=== PATIENT | female | born 1970 | race Asian ===

== ENCOUNTER 2016-06-13 08:06 | Emergency (ER) | payer OTHER ==
[~2016-06-13] VITALS: Ht 144.8 cm; Wt 40.0 kg
[2016-06-13 08:49] LABS: BASOPHIL % 0.3 % (0-2); PLATELET COUNT 389 x10^3mcL (130-400); RED CELL DISTRIBUTION WIDTH 13.3 % (11.5-14.5)
[2016-06-13 08:55] LABS: microscopic required? YES; urine erythrocyte 1+ (NEGATIVE)
[2016-06-13 09:08] LABS: CALCIUM 9.5 mg/dL (8.5-10.1); CARBON DIOXIDE 29.4 mmol/L (21-32); CHLORIDE SERUM 103 mmol/L (98-107); CREATININE SERUM 0.7 mg/dL (0.6-1.0); GFR1 > 60 mL/min; GLUCOSE SERUM 92 mg/dL (74-106); POTASSIUM SERUM 3.3 mmol/L (3.5-5.1); SODIUM SERUM 141 mmol/L (136-145)
[2016-06-13 09:12] LABS: ALBUMIN 3.9 g/dL (3.4-5.0); ALKALINE PHOSPHATASE 80 U/L (46-116); ALT/SGPT 24 U/L (14-59); AST/SGOT 21 U/L (15-37); BILIRUBIN TOTAL 0.4 mg/dL (0.20-1.00); LIPASE 77 IU/L (73-393)
[2016-06-13 09:13] LABS: TOTAL PROTEIN, SERUM 8.6 g/dL (6.4-8.2)
[2016-06-13 12:07] VITALS: BP 90/58
== END 2016-06-13 12:07 | disposition home or self-care (01) ==
LOC: ED 08:06
PROVIDERS: Emergency Medicine
DX: R07.89 Other chest pain (principal); M54.5 Low back pain; R39.11 Hesitancy of micturition; R10.9 Unspecified abdominal pain
CPT/HCPCS: J1885; J2270; J2405; J7030; Q9967

== ENCOUNTER 2016-06-15 08:19 | Inpatient (IN) | payer OTHER ==
[~2016-06-15] VITALS: Ht 142.2 cm; Wt 39.5 kg
[2016-06-15 09:14] LABS: microscopic required? NO
[2016-06-15 09:24] LABS: BASOPHIL % 0.4 % (0-2); PLATELET COUNT 332 x10^3mcL (130-400); RED CELL DISTRIBUTION WIDTH 13.7 % (11.5-14.5)
[2016-06-15 09:30] LABS: CARBON DIOXIDE 28.3 mmol/L (21-32); CHLORIDE SERUM 105 mmol/L (98-107); CREATININE SERUM 0.7 mg/dL (0.6-1.0); GFR1 > 60 mL/min; GLUCOSE SERUM 91 mg/dL (74-106); POTASSIUM SERUM 3.5 mmol/L (3.5-5.1); SODIUM SERUM 142 mmol/L (136-145)
[2016-06-15 09:37] LABS: ALBUMIN 3.4 g/dL (3.4-5.0); ALKALINE PHOSPHATASE 68 U/L (46-116); ALT/SGPT 18 U/L (14-59); AMYLASE 41 U/L (25-115); AST/SGOT 12 U/L (15-37); BILIRUBIN TOTAL 0.3 mg/dL (0.20-1.00); LIPASE 90 IU/L (73-393); TOTAL PROTEIN, SERUM 7.4 g/dL (6.4-8.2)
[2016-06-15 09:37] LABS: UA SPECIFIC GRAVITY 1.015 (1.005-1.035); urine erythrocyte NEGATIVE (NEGATIVE)
[2016-06-15 12:22] VITALS: BP 122/73
[2016-06-15 12:41] LABS: CHOLESTEROL/HDL RATIO 2.6
[2016-06-15 12:48] LABS: T3 TOTAL 0.85 ng/mL
[2016-06-15 12:50] LABS: FREE T4 1.1 ng/dL (0.76-1.46); FREE THYROXINE INDEX 2.4 ug/dL (1.4-4.5); T4(THYROXINE) 7.6 ug/dL (4.7-13.3)
[2016-06-15 13:13] LABS: AMPHETAMINE QUAL UR NONE DETECTED (NEG <=1000)
[2016-06-15 14:00] VITALS: BP 124/77
[2016-06-15 18:03] VITALS: BP 116/71
[2016-06-15 21:11] VITALS: BP 105/71
[2016-06-16 05:39] VITALS: BP 121/78
[2016-06-16 06:22] LABS: BASOPHIL % 0.4 % (0-2); PLATELET COUNT 338 x10^3mcL (130-400); RED CELL DISTRIBUTION WIDTH 13.6 % (11.5-14.5)
[2016-06-16 06:37] LABS: CALCIUM 8.7 mg/dL (8.5-10.1); CARBON DIOXIDE 27.2 mmol/L (21-32); CHLORIDE SERUM 106 mmol/L (98-107); CREATININE SERUM 0.8 mg/dL (0.6-1.0); GFR1 > 60 mL/min; GLUCOSE SERUM 88 mg/dL (74-106); MAGNESIUM 2.9 mg/dL (1.8-2.4); PHOSPHOROUS 3.9 mg/dL (2.5-4.9); POTASSIUM SERUM 3.3 mmol/L (3.5-5.1); SODIUM SERUM 143 mmol/L (136-145)
[2016-06-16 09:43] VITALS: BP 113/62
[2016-06-16 13:17] VITALS: BP 120/69
[2016-06-16 17:14] VITALS: BP 126/74
[2016-06-17 06:04] VITALS: BP 131/80
[2016-06-17 06:39] LABS: BASOPHIL % 0.3 % (0-2); PLATELET COUNT 311 x10^3mcL (130-400); RED CELL DISTRIBUTION WIDTH 13.9 % (11.5-14.5)
[2016-06-17 07:00] LABS: CALCIUM 8.9 mg/dL (8.5-10.1); CARBON DIOXIDE 27.6 mmol/L (21-32); CHLORIDE SERUM 108 mmol/L (98-107); CREATININE SERUM 0.6 mg/dL (0.6-1.0); GFR1 > 60 mL/min; GLUCOSE SERUM 83 mg/dL (74-106); POTASSIUM SERUM 3.7 mmol/L (3.5-5.1); SODIUM SERUM 143 mmol/L (136-145)
[2016-06-17 09:11] VITALS: BP 124/81
[2016-06-17 10:30] VITALS: BP 114/78
[2016-06-17 13:15] VITALS: BP 115/78
[2016-06-17 17:18] VITALS: BP 10/62
[2016-06-17 21:25] VITALS: BP 109/67
[2016-06-18 01:00] VITALS: Ht 142.2 cm; Wt 39.5 kg
[2016-06-18 05:42] VITALS: BP 132/74
[2016-06-18 06:51] LABS: CALCIUM 8.1 mg/dL (8.5-10.1); CARBON DIOXIDE 22.8 mmol/L (21-32); CHLORIDE SERUM 106 mmol/L (98-107); CREATININE SERUM 0.5 mg/dL (0.6-1.0); GFR1 > 60 mL/min; GLUCOSE SERUM 65 mg/dL (74-106); POTASSIUM SERUM 3.5 mmol/L (3.5-5.1); SODIUM SERUM 140 mmol/L (136-145)
[2016-06-18 07:27] LABS: BASOPHIL % 0.3 % (0-2); PLATELET COUNT 287 x10^3mcL (130-400)
[2016-06-18 09:49] VITALS: BP 113/68
[2016-06-18 14:17] VITALS: BP 112/75
[2016-06-18] MEDS ORDERED: ZITHROMAX TRI-500 MG PO (16:32)
[2016-06-18 17:02] VITALS: BP 112/75
[2016-06-18 17:27] VITALS: BP 110/69
[2016-06-18] MEDS ORDERED: APAP/HYDROCODON1 T13 PO (17:27)
== END 2016-06-18 18:08 | disposition home or self-care (01) | DRG 243 ==
LOC: ED 08:19 → DU 11:25 → MU 06-18 07:48
PROVIDERS: Emergency Medicine; Family Medicine; Internal Medicine Gastroenterology; ADMIT Family Medicine
PROC: 0DB48ZX Excision of Esophagogastric Junction, Via Natural or Artificial Opening Endoscopic, Diagnostic (ICD-10-PCS; principal; 2016-06-17 09:00)
PROC: 0DB68ZX Excision of Stomach, Via Natural or Artificial Opening Endoscopic, Diagnostic (ICD-10-PCS; 2016-06-17 09:00)
PROC: 0DJD8ZZ Inspection of Lower Intestinal Tract, Via Natural or Artificial Opening Endoscopic (ICD-10-PCS; 2016-06-17 09:00)
DX: K22.9 Disease of esophagus, unspecified (principal); J18.9 Pneumonia, unspecified organism; K52.9 Noninfective gastroenteritis and colitis, unspecified; Z68.1 Body mass index [BMI] 19.9 or less, adult; K92.9 Disease of digestive system, unspecified; E87.6 Hypokalemia; E83.41 Hypermagnesemia
CPT/HCPCS: 43235; 45378; 80307; 83880; 84439; G0480; J0696; J1200; J1610; J1885; J2250; J2270; J2310; J2405; J3010; J3490; J7030; Q0092; Q9963

== ENCOUNTER 2016-06-22 19:16 | Emergency (ER) | payer OTHER ==
[~2016-06-22 19:16] MED LIST: APAP/HYDROCODON1 T13 PO; ZITHROMAX TRI-500 MG PO
[2016-06-22 21:39] VITALS: BP 117/78
== END 2016-06-22 21:39 | disposition home or self-care (01) ==
LOC: ED 19:16
DX: R10.9 Unspecified abdominal pain (principal); K59.00 Constipation, unspecified
CPT/HCPCS: J1885; Q0092

== ENCOUNTER 2016-07-02 08:24 | Observation (INO) | payer OTHER ==
[~2016-07-02] VITALS: Ht 142.2 cm; Wt 40.6 kg
--- NOTE | 2016-07-02 08:32 | NUR ---
VIA BOOT LACE CUTTER MACHINE PHONE, ID # [id number], THE FOLLOWING INFORMATION WAS PROVIDED. PT STATED RIGHT SIDED GROIN, STOMACH, AND WAIST PAIN FOR THE PAST FEW WEEKS. 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 PAIN IS ALSO FELT WITH AND WITHOUT USING THE BATHROOM (URINATION AND BOWEL MOVEMENTS). PT STATED LAST BM WAS THIS AM APPX 0500 AND WAS LOOSE/WATERY.
[2016-07-02] MEDS ORDERED: MORPHINE SULFAT30 M2 PO (08:39)
[2016-07-02] MEDS ORDERED: PURELAX17 GM PO (08:40)
[2016-07-02] MEDS ORDERED: MOT600 PO (08:40)
[2016-07-02] MEDS ORDERED: PAROXETINE HCL20 M1 PO (08:41)
--- NOTE | 2016-07-02 08:43 | NUR ---
PT BIB [facility] C/C ABD PAIN ON GOING X 1 MONTH PER FAMILY POSSIBLE STOMACHE CA DR LOWE AT BEDSIDE TO [facility]
--- NOTE | 2016-07-02 08:53 | NUR ---
NURSE MIDWIFE/CLINICAL INSTRUCTOR AT BEDSIDE FOR BLOOD DRAW MEDICATED ORDERED
[2016-07-02 09:05] LABS: BASOPHIL % 0.2 % (0-2); RED CELL DISTRIBUTION WIDTH 13.8 % (11.5-14.5)
[2016-07-02 09:08] LABS: PLATELET COUNT 475 x10^3mcL (130-400)
[2016-07-02 09:18] LABS: microscopic required? NO
[2016-07-02 09:24] LABS: CALCIUM 8.9 mg/dL (8.5-10.1); CARBON DIOXIDE 28.5 mmol/L (21-32); CHLORIDE SERUM 100 mmol/L (98-107); CREATININE SERUM 0.5 mg/dL (0.6-1.0); GFR1 > 60 mL/min; GLUCOSE SERUM 106 mg/dL (74-106); POTASSIUM SERUM 3.8 mmol/L (3.5-5.1); SODIUM SERUM 136 mmol/L (136-145)
--- NOTE | 2016-07-02 09:25 | NUR ---
PT TAKEN TO RADIOLOGY FOR CT
[2016-07-02 09:29] LABS: ALKALINE PHOSPHATASE 67 U/L (46-116); ALT/SGPT 29 U/L (14-59); AST/SGOT 27 U/L (15-37); BILIRUBIN TOTAL 0.4 mg/dL (0.20-1.00); LIPASE 84 IU/L (73-393)
[2016-07-02 09:31] LABS: urine erythrocyte NEGATIVE (NEGATIVE)
--- NOTE | 2016-07-02 09:51 | NUR ---
BACK FROM CT
--- NOTE | 2016-07-02 10:51 | NUR ---
PT ADMIT TO TELE ROOM 203B GAVE REPORT TO YUMIKO
[2016-07-02 11:18] LABS: PHOSPHOROUS 3.8 mg/dL (2.5-4.9)
[2016-07-02 11:26] LABS: T3 TOTAL 0.85 ng/mL
[2016-07-02 11:29] LABS: FREE T4 1.41 ng/dL (0.76-1.46); FREE THYROXINE INDEX 3.3 ug/dL (1.4-4.5); T4(THYROXINE) 9.5 ug/dL (4.7-13.3)
--- NOTE | 2016-07-02 11:30 | NUR ---
RECEIVED PATIENT FROM ER. ALERT/ORIENTED X3. YORUBA SPEAKING. FAMILY AT BED FOR TRANSLATION. C/O INTRACTABLE ABD PAIN THIS EARLY THIS MORNING. 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 PAIN WAS NOT RELIEVED BY ORAL MORPHINE. CAME TO EMERGENCY ROOM. NO N/V; HAD WATERY BM AT 4AM THIS MORNING. C/O BURNING OF URINATION. POOR APPETITE. HAD ENSURE ONLY. ABD FLAT/SOFT. BOWEL SOUND ACTIVE. IVHL'D TO LAC. V/S WNL. CALL LIGHT IN REACH.
[2016-07-02 11:36] VITALS: BP 128/83
--- NOTE | 2016-07-02 12:30 | NUR ---
IVF OF NS 80CC/HR INFUSING WELL. MORPHINE 2MG IVP GIVEN FOR ABD PAIN ON 09/25. CONTINUE MONITOR.
[2016-07-02 13:05] LABS: AMPHETAMINE QUAL UR NONE DETECTED (NEG <=1000)
[2016-07-02 16:29] VITALS: Ht 142.2 cm; Wt 40.6 kg
[2016-07-02 17:28] VITALS: BP 151/83
--- NOTE | 2016-07-02 18:10 | NUR ---
C/O LOWER ABD PAIN ON 12/26; MORPHINE 2MG IVP GIVEN AT 1651. STATED MORPHINE 2MG NOT EFFECTIVE. ABD PAIN STILL ON 12/26. DR. HINKLE PAGED X 3, TEXT MASSAGE SEND. DR. HINKLE CAME TO SEE PATIENT. NEW ORDER OF DILAUDID 2MG IVP GIVEN.
--- NOTE | 2016-07-02 19:20 | NUR ---
STATED ABD PAIN DOWN TO 2/10 NOW. TOLERATED DINNER. ENDORSED CARE TO NOC NURSE.
--- NOTE | 2016-07-02 19:35 | NUR ---
RECEIVED Pt AAOX4 CALM. DENIES ANY CHEST PAIN. LUNG SOUNDS ARE CTA BILATERALLY. ACTIVE BOWEL SOUNDS X4 QUADS. C/O SHARP STABBING LIKE LOWER ABDOMEN PAIN AT 8/10 AND BURNING WITH URINATION. Pt STATES DILAUDID IV DID NOT HELP WITH PAIN. VOIDS FREELY. NO BM. SKIN IS INTACT. IV SITE TO LAC IS PATENT. RADIAL AND PEDAL PULSES ARE PRESENT. MOVES ALL EXTREMITIES. NO EDEMA NOTED. DAUGHTER AT BEDSIDE. SAFETY AND COMFORT MEASURES IN PLACE. WILL CONTINUE TO MONITOR.
--- NOTE | 2016-07-02 20:00 | NUR ---
I HAVE REVIEWED THE DATA COLLECTION BY ABDULKADIR (NAME):SHAAN HAMILTON ENTERED ON (DATE/TIME):07/02/161934 I CONCUR WITH THE DATA AND ANY EXCEPTIONS OR COMMENTS ARE LISTED BELOW:
[2016-07-02 20:51] VITALS: BP 144/91
--- NOTE | 2016-07-02 21:15 | NUR ---
Pt MEDICATED WITH MORPHINE IV FOR LOWER ABD PAIN AT 8. WILL CONTINUE TO MONITOR.
--- NOTE | 2016-07-02 22:40 | NUR ---
Pt C/O PAIN TO LOWER ABDOMEN, STATES SHE DOES NOT HAVE ANY RELIEF WITH MORPHINE IV. WILL CONTINUE TO MONITOR.
--- NOTE | 2016-07-02 23:03 | NUR ---
AWARE OF PT's PAIN, BURNING WITH URINATION AND THAT SHE IS NOT RECEIVING ANY RELIEF TO HER PAIN. TO RE-ORDER THE MIRALAX AND MS CONTIN. WILL CONTINUE TO MONITOR.
[2016-07-02 23:12] VITALS: BP 134/99
--- NOTE | 2016-07-02 23:35 | NUR ---
Pt MEDICATED WITH MORPHINE IV, AMBIEN AND PIRYDIUM ORDERED. WILL CONTINUE TO MONITOR.
--- NOTE | 2016-07-03 00:50 | NUR ---
SPOKE WITH Pt REGARDING HER PAIN. WILL FOLLOW ORDERS.
[2016-07-03 02:43] VITALS: BP 132/75
--- NOTE | 2016-07-03 03:13 | NUR ---
Pt C/O LOWER ABD PAIN AT 5/10, B/P 132/75 HR 74. MEDICATED WITH DILAUDID IV. WILL CONTINUE TO MONITOR.
--- NOTE | 2016-07-03 04:10 | NUR ---
Pt RESTING QUIETLY. NO SIGNS OF PAIN NOTED. CALL LIGHT WITHIN REACH. WILL CONTINUE TO MONITOR.
--- NOTE | 2016-07-03 05:06 | NUR ---
Pt MEDICATED NEEDED AND ORDERED FOR PAIN WITH VERY LITTLE RELIEF. HER PAIN REMAINED AT 6-7/10 EVEN AFTER BEING MEDICATED WITH MORPHINE IV OR DILAUDID IV. HAS BEEN SLEEPING ON AND OFF. VOIDS FREELY. IV SITE REMAINS PATENT. SAFETY AND COMFORT MEASURES REMAIN IN PLACE. WILL CONTINUE TO MONITOR.
[2016-07-03 05:19] VITALS: BP 143/85
--- NOTE | 2016-07-03 06:05 | NUR ---
Pt MEDICATED FOR LOWER ABD PAIN AT 5/10 WITH MORPHINE IV. WILL CONTINUE TO MONITOR.
[2016-07-03 06:19] LABS: BASOPHIL % 0.1 % (0-2); RED CELL DISTRIBUTION WIDTH 13.4 % (11.5-14.5)
[2016-07-03 06:22] LABS: CALCIUM 8.7 mg/dL (8.5-10.1); CARBON DIOXIDE 26.1 mmol/L (21-32); CHLORIDE SERUM 97 mmol/L (98-107); CREATININE SERUM 0.4 mg/dL (0.6-1.0); GFR1 > 60 mL/min; GLUCOSE SERUM 116 mg/dL (74-106); POTASSIUM SERUM 4.1 mmol/L (3.5-5.1); SODIUM SERUM 130 mmol/L (136-145)
[2016-07-03 06:26] LABS: ALBUMIN 2.9 g/dL (3.4-5.0)
[2016-07-03 06:43] LABS: PLATELET COUNT 493 x10^3mcL (130-400)
--- NOTE | 2016-07-03 07:30 | NUR ---
PT RESTING COMFORTABLY IN BED, AWAKE A/O X4 INDONESIAN SPEAKING, DAUGHTER AT [facility]. TELE 18, PULSES EQUAL BILATERAL NO EDEMA NOTED. LUNGS CTA. PT C/O PAINFUL URINATION. AMBULATES WITH ASSIST. IV TO THE LAC, SITE WNL. CALL LIGHT IN REACH WILL CONTINUE TO MONITOR.
--- NOTE | 2016-07-03 09:30 | NUR ---
PT C/O SEVERE PAIN WILL MEDICATE ACCORDING TO MAR.
[2016-07-03 09:33] VITALS: BP 154/94
--- NOTE | 2016-07-03 10:45 | NUR ---
PT RESTING IN BED NO SIGNS OF DISTRESS CALL LIGHT IN REACH WILL CONTINUE TO MONITOR.
[2016-07-03] MEDS ORDERED: MSC15 PO (12:24)
[2016-07-03] MEDS ORDERED: PERCOCET1 TA5 PO (12:24)
[2016-07-03 12:54] VITALS: BP 148/90
--- NOTE | 2016-07-03 13:12 | NUR ---
PT UO OOB WALKED TO RESTROOM UNASSISTED, STEADY GAIT.
--- NOTE | 2016-07-03 14:16 | NUR ---
PT ASLEEP IN BED NO SIGNS OF DISTRESS WILL CONTINUE TO MONITOR.
[2016-07-03 14:34] VITALS: BP 148/90
[2016-07-03 16:40] VITALS: BP 138/90
--- NOTE | 2016-07-03 17:20 | NUR ---
DISCHARGE INSTRUCTIOSN GIVEN TO PT USING MIXOLOGIST PHONE ([phone]). PT INFORMED OF BOTH FOLLOW UP APPOINTMENTS, PT VERBALIZED UNDERSTANDING. IV DC'D INTACT. ALL BANDS CUT OFF PT. SCRIPTS GIVEN TO PT AND PT INFORMED TO NOT LOOSE THEM, AND ALSO THAT THE PERCOCET IS FOR BREAKTHOUGH PAIN AND MS CONTIN IF FOR SEVERE PAIN, PT VERBALIZED UNDERSTANDING. PT WHEELED OF THE FLOOR ACCOMPAINED BY RN, ABLE TO WALKED TO CAR UNASSISTED. ALL BELONGINGS WITH THE PT.
== END 2016-07-03 17:00 | disposition home or self-care (01) | DRG 240 ==
LOC: ED 08:24 → DU 10:22 → MU 10:22 → DU 10:22 → MU 07-03 15:53
PROVIDERS: Emergency Medicine; ADMIT Family Medicine
DX: C16.1 Malignant neoplasm of fundus of stomach (principal); C78.6 Secondary malignant neoplasm of retroperitoneum and peritoneum; E44.0 Moderate protein-calorie malnutrition; E87.1 Hypo-osmolality and hyponatremia; D64.9 Anemia, unspecified; D47.3 Essential (hemorrhagic) thrombocythemia; F32.9 Major depressive disorder, single episode, unspecified; Z68.20 Body mass index [BMI] 20.0-20.9, adult
CPT/HCPCS: 80307; 83880; 84439; G0378; J1170; J2270; J2405; J7030; Q0092; Q9967

== ENCOUNTER 2016-07-08 07:49 | Emergency (ER) | payer OTHER ==
[~2016-07-08] VITALS: Ht 149.9 cm; Wt 37.4 kg
[~2016-07-08 07:49] MED LIST changes: +MORPHINE SULFAT30 M2 PO; +MOT600 PO; +MSC15 PO; +PAROXETINE HCL20 M1 PO; +PERCOCET1 TA5 PO; +PURELAX17 GM PO
[2016-07-08 08:31] LABS: BASOPHIL % 0.4 % (0-2); RED CELL DISTRIBUTION WIDTH 13.4 % (11.5-14.5)
[2016-07-08 08:48] LABS: PLATELET COUNT 570 x10^3mcL (130-400)
[2016-07-08 09:06] LABS: CALCIUM 9.2 mg/dL (8.5-10.1); CARBON DIOXIDE 28.7 mmol/L (21-32); CHLORIDE SERUM 94 mmol/L (98-107); CREATININE SERUM 0.5 mg/dL (0.6-1.0); GFR1 > 60 mL/min; GLUCOSE SERUM 131 mg/dL (74-106); POTASSIUM SERUM 4.1 mmol/L (3.5-5.1); SODIUM SERUM 129 mmol/L (136-145)
[2016-07-08 09:10] LABS: ALKALINE PHOSPHATASE 84 U/L (46-116); ALT/SGPT 34 U/L (14-59); AMYLASE 34 U/L (25-115); AST/SGOT 39 U/L (15-37); BILIRUBIN TOTAL 0.34 mg/dL (0.20-1.00); LIPASE 76 IU/L (73-393); TOTAL PROTEIN, SERUM 7.4 g/dL (6.4-8.2)
[2016-07-08 09:16] LABS: ALBUMIN 2.8 g/dL (3.4-5.0)
[2016-07-08 10:41] VITALS: BP 151/98
== END 2016-07-08 10:41 | disposition home or self-care (01) ==
LOC: ED 07:49
PROVIDERS: Emergency Medicine
DX: K59.00 Constipation, unspecified (principal); K56.7 Ileus, unspecified
CPT/HCPCS: 83880; J0780; J1170; J3010; J7030

== ENCOUNTER 2016-07-09 22:09 | Emergency (ER) | payer OTHER ==
[~2016-07-09] VITALS: Ht 129.5 cm; Wt 36.7 kg
[2016-07-09 23:00] LABS: BASOPHIL % 0.4 % (0-2); RED CELL DISTRIBUTION WIDTH 13.7 % (11.5-14.5)
[2016-07-09 23:03] LABS: CALCIUM 8.8 mg/dL (8.5-10.1); CARBON DIOXIDE 27.6 mmol/L (21-32); CHLORIDE SERUM 93 mmol/L (98-107); CREATININE SERUM 0.6 mg/dL (0.6-1.0); GFR1 > 60 mL/min; GLUCOSE SERUM 116 mg/dL (74-106); POTASSIUM SERUM 4.3 mmol/L (3.5-5.1); SODIUM SERUM 130 mmol/L (136-145)
[2016-07-09 23:08] LABS: ALKALINE PHOSPHATASE 100 U/L (46-116); ALT/SGPT 34 U/L (14-59); AST/SGOT 26 U/L (15-37); BILIRUBIN TOTAL 0.6 mg/dL (0.20-1.00); LIPASE 50 IU/L (73-393)
[2016-07-09 23:09] LABS: ALBUMIN 2.5 g/dL (3.4-5.0); AMYLASE 21 U/L (25-115)
[2016-07-09 23:23] LABS: CK-MB 0.6 ng/mL (0-3.6)
[2016-07-09 23:34] LABS: PLATELET COUNT 568 x10^3mcL (130-400)
[2016-07-09 23:45] LABS: UA SPECIFIC GRAVITY 1.025 (1.005-1.035); microscopic required? YES; urine erythrocyte 1+ (NEGATIVE)
[2016-07-10 03:41] LABS: CHOLESTEROL/HDL RATIO 2.5
[2016-07-10 04:21] LABS: FREE THYROXINE INDEX 3.3 ug/dL (1.4-4.5)
[2016-07-10 04:25] LABS: FREE T4 1.69 ng/dL (0.76-1.46)
[2016-07-10 08:17] LABS: CALCIUM 7.6 mg/dL (8.5-10.1); CARBON DIOXIDE 25.9 mmol/L (21-32); CHLORIDE SERUM 99 mmol/L (98-107); CREATININE SERUM 0.5 mg/dL (0.6-1.0); GFR1 > 60 mL/min; GLUCOSE SERUM 97 mg/dL (74-106); MAGNESIUM 1.8 mg/dL (1.8-2.4); PHOSPHOROUS 3.9 mg/dL (2.5-4.9); POTASSIUM SERUM 4.4 mmol/L (3.5-5.1); SODIUM SERUM 133 mmol/L (136-145)
[2016-07-10 08:25] LABS: BASOPHIL % 0.3 % (0-2); RED CELL DISTRIBUTION WIDTH 13.9 % (11.5-14.5)
[2016-07-10 08:26] LABS: PLATELET COUNT 665 x10^3mcL (130-400)
[2016-07-10 10:54] LABS: T3 TOTAL 0.8 ng/mL
[2016-07-10 16:40] VITALS: BP 129/71
== END 2016-07-10 17:22 | disposition home or self-care (01) ==
LOC: ED 22:09
PROVIDERS: Emergency Medicine; Family Medicine
DX: R18.8 Other ascites (principal); C16.9 Malignant neoplasm of stomach, unspecified
CPT/HCPCS: 83880; 84439; J0696; J1170; J2270; J2405; J7030; Q0092